=== PATIENT | female | born 1955 | race Caucasian/White ===

== ENCOUNTER 2016-11-03 08:18 | Outpatient (CLI) | payer BC | END 2016-11-03 20:13 | disposition home or self-care (01) | LOC: SMA 08:18 | PROVIDERS: ATTEND Specialist | DX: R92.8 Other abnormal and inconclusive findings on diagnostic imaging of breast (principal) | CPT/HCPCS: G0204 ==

== ENCOUNTER 2018-01-05 08:18 | Outpatient (CLI) | payer BC | END 2018-01-05 18:38 | disposition home or self-care (01) | LOC: SMA 08:18 | PROVIDERS: ATTEND Specialist | DX: Z12.31 Encounter for screening mammogram for malignant neoplasm of breast (principal) | CPT/HCPCS: 77067 ==

== ENCOUNTER 2019-10-14 10:27 | Emergency (ER) | payer BC ==
[~2019-10-14] VITALS: Ht 180.3 cm; Wt 107.0 kg
[2019-10-14 10:27] VITALS: BP_SYST 164
--- NOTE | 2019-10-14 10:27 | NUR ---
Patient triaged and placed in waiting room. VSS and patient appears in no acute distress at this time. Accompanied by SPOUSE, awaiting available bed, and MD notified of need for MSE.
--- NOTE | 2019-10-14 10:31 | NUR ---
DR FUNEZ CALLED TO TRIAGE ROOM, DR FUNEZ EVALUATING PT AT THIS TIME.
--- NOTE | 2019-10-14 12:15 | NUR ---
PT IN WAITING ROOM, STATES NO CHANGE IN TONGUE SWELLING. TALKING WITH FAMILY
--- NOTE | 2019-10-14 14:15 | NUR ---
PT ELOPED. NO AVAILABLE BED IN ER.
== END 2019-10-14 14:15 | disposition left against medical advice (07) ==
LOC: SED 10:27
DX: K13.29 Other disturbances of oral epithelium, including tongue (principal)
CPT/HCPCS: 99281